=== PATIENT | female | born 2000 | race Caucasian/White ===

== ENCOUNTER 2020-03-15 13:15 | Emergency (ER) | payer MEDICAID, SELFPAY ==
[2020-03-15 13:38] VITALS: BP 115/60; PULSE 77; RESP 18; TEMP 36.7; O2SAT 99; BMI 25.0
--- NOTE | 2020-03-15 15:00 | ED_ITS ---
HPI - Abdominal Pain General: Chief Complaint: Abdominal Pain Stated Complaint: abd pain, n/v Time Seen by Provider: 03/15/20 14:49 Source: patient Mode of arrival: ambulatory Limitations: no limitations History of Present Illness: HPI narrative: Patient is a 19-year-old female who presents to ED today with complaints of intermittent upper abdominal pain, nausea, and diarrhea that has been present over the past few months. She does report one episode of non-bloody vomit recently. Patient states symptoms seem to be brought on by eating worse with greasy foods. She is tried OTC Tums and other heartburn relief medications without relief. Patient has not noticed any bloody or dark stools. She does report her mother had gallbladder disease. Patient denies heavy NSAID or alcohol use. She has not been running fevers. MD elicited complaint: abdominal pain and other (N/V/D) Onset (ago): month(s) Pain Consistency: intermittent Location: Epigastric and RUQ Severity: moderate Quality: burning Radiation: back Exacerbating factors: eating Relieving factors: nothing Associated Symptoms: Reports diarrhea, heartburn, nausea and vomiting; Denies chills, coffee ground emesis, dysuria, fever(s), hematochezia, hematemesis, melena and syncope Related Data: Date of Last Menstrual Period: 03/11/20 Review of Systems Const: Denies: fever(s) or chills ENMT: Denies: odynophagia Card: Denies: chest pain, palpitations, irregular heart rhythm, edema, lightheadedness, syncope, pre-syncope or orthopnea Resp: Denies: dyspnea GI: Reports: abdominal pain, nausea, vomiting, heartburn and diarrhea; Denies: hematemesis, coffee ground emesis, dysphagia, pain on defecation, hematochezia, melena or white/light colored stool : Denies: flank pain, difficulty voiding, dysuria, urinary frequency, urinary urgency or urinary hesitancy Musc: Denies: neck pain or back pain Neuro: Denies: headache(s) PFSH ED PFSH: Social History Smoking and tobacco status: current every day smoker Female Reproductive History: Date of last menstrual period: 03/11/20 Physical Exam 2 Const: COMMON NORMALS: no acute distress, average body habitus, patient oriented x3, no limitations, healthy appearing, alert and well nourished Chest: COMMONS NORMALS: normal inspection of the chest and normal palpation of entire chest wall Resp: COMMON NORMALS: normal respiratory effort and clear to auscultation bilaterally AUSCULTATION: clear to auscultation bilaterally Cardio: COMMON NORMALS: regular rate and regular rhythm RATE: regular rate RHYTHM: regular rhythm GI: COMMON NORMALS: Normal to inspection, nondistended, normoactive bowel sounds present, Soft to palpation and No hepatosplenomegaly present PALPATION: Yes Soft to palpation, Yes Tenderness to palpation present (GI) (mild to epigastric, RUQ) and Yes No hepatosplenomegaly present : COMMON NORMALS: Yes no CVA tenderness BLADDER/KIDNEY EXAM: Yes no CVA tenderness Back/Pelvis: COMMON NORMALS: no CVA tenderness Extremity: COMMON NORMALS: no clubbing, cyanosis or edema and no pedal edema Neuro: COMMON NORMALS: patient oriented x3 SENSORIUM/ORIENTATION: Yes alert Skin: COMMON NORMALS: no rashes or lesions noted GENERAL SKIN EXAM: no rashes or lesions noted Course Vital Signs: Vital signs: Vital Signs Temperature 98.0 F 03/15/20 13:38 Pulse Rate 72 03/15/20 16:26 Respiratory Rate 18 03/15/20 16:26 Blood Pressure 112/59 03/15/20 16:26 Pulse Oximetry 99 03/15/20 16:26 MDM - Abdominal Pain Lab Data: Labs: Lab Results 03/15/20 03/15/20 03/15/20 Range/Units 15:04 15:04 15:04 WBC 9.9 (4.0-10.0) 10^3/ uL RBC 4.46 (4.1-5.3) 10^6/u L Hgb 14.1 (11.5-15.3) g/dL Hct 43.4 (37.0-47.0) % MCV 97.3 (81-99) fL MCH 31.6 (28.0-34.0) pg MCHC 32.5 (30.0-36.0) g/dL RDW 11.7 L (12.1-15.1) % Plt Count 260 (130-400) 10^3/c mm MPV 11.8 H (7.4-10.4) fL Neut % (Auto) 65.7 % Lymph % (Auto) 25.6 % Greer % (Auto) 6.8 % Eos % (Auto) 1.2 % Baso % (Auto) 0.5 % Neut # (Auto) 6.5 (1.8-7.7) 10^3/u L Lymph # (Auto) 2.5 (0.8-4.8) 10^3/u L Greer # (Auto) 0.7 (0.2-0.9) 10^3/u L Eos # (Auto) 0.1 (0.0-0.8) 10^3/u L Baso # (Auto) 0.1 (0.0-0.1) 10^3/u L Nucleated RBC % (a uto) 0 % Nucleated RBCs # 0.0 /100WBC Sodium 140 (136-145) mmol/L Potassium 3.9 (3.5-5.1) mmol/L Chloride 104 (98-107) mmol/L Carbon Dioxide 24 (22-29) mmol/L Anion Gap 15.9 (5-19) BUN 9 (6-20) mg/dL Creatinine 0.5 (0.5-0.9) mg/dL GFR Calculation 155.7 H (90-130) mL/min Glucose 80 (65-115) mg/dL Calculated Osmolal ity 285 (285-295) mOsm/k g Calcium 9.9 (8.5-10.5) mg/dL Total Bilirubin 0.9 (0.15-1.2) mg/dL AST 13 (0-32) U/L ALT 10 (0-33) U/L Alkaline Phosphata se 83 (35-105) IU/L Total Protein 7.3 (6.6-8.7) g/dL Albumin 5.1 (3.5-5.2) g/dL Globulin 2.2 (1.3-4.6) g/dL Lipase 16 (13-60) U/L HCG, Qual Negative (Negative) Imaging Data ^: US gallbladder: Radiologist's impression: [address] [place] [address] Ultrasound Report Signed Patient: Marco Antonio Fuentes Unit #: [id number] : 2000 Age/Sex: 19 / F ADM Date: 03/15/20 Loc: ER Room/Bed: Attending Dr: Ordering Provider/Ordering MD: Dana Cabrera Date of Service: 03/15/20 Procedure(s): US gall bladder 48391 Accession Number(s): [id number] Report Number: [id number] PROCEDURE INFORMATION: Exam: US Abdomen Limited, Right Upper Quadrant Exam date and time: 03/15/2020 3:46 PM Age: 19 years old Clinical indication: Abdominal pain; Additional info: Ruq pain TECHNIQUE: Imaging protocol: Real-time ultrasound of the abdomen with image documentation. Examination was focused on the right upper quadrant. COMPARISON: No relevant prior studies available. FINDINGS: Liver: The liver is homogeneous in echogenicity. The liver measures 12.4 cm in length. Gallbladder: There is cholelithiasis with multiple small mobile gallstones. The gallbladder wall is normal in thickness at 1.9 mm. There is a negative sonographic Ulloa's sign. Common bile duct: The common bile duct is within normal limits at 2.1 mm. No duct dilatation. Pancreas: Visualized pancreas is unremarkable. Right kidney: Normal. No mass. No hydronephrosis. Aorta: The aorta is visualized and is unremarkable. US/US gall bladder [id number] IMPRESSION: Cholelithiasis without cholecystitis. No acute abnormality. Dictated By: Taya Esparza Signed By: Taya Esparza Signed Date/Time: 03/15/20 1601 DD/ 1600 Discharge Plan Discharge Patient Disposition: Home, Self-Care Clinical Impression: Cholelithiasis Qualifiers: Cholelithiasis location: gallbladder Cholecystitis presence: without cholecystitis Biliary obstruction: without biliary obstruction Qualified Code(s): K80.20 - Calculus of gallbladder without cholecystitis without obstruction Condition: Stable Prescriptions: New Zofran 4 mg tablet 4 mg PO Q6H PRN (Reason: nausea and vomiting) Qty: 14 RF: 0 No Action ibuprofen 200 mg Tablet 200 mg PO Q6H PRN (Reason: pain/headache) RF: 0 norethindrone (contraceptive) 0.35 mg Tablet 0.35 mg PO DAILY RF: 0 Discharge Orders: Discharge Order (Routine); Ordered 03/15/20 Ordered By: Dana Cabrera Referrals: Hernán Da Sliva MD [Primary Care Provider] - Patient Instructions: Cholelithiasis, Biliary Colic (ED) Activity Restrictions/Additional Instructions: As discussed to stay away from greasy, spicy, fatty foods. You may use the Zofran as needed for nausea. Case management should contact you to set you up with general surgery for further evaluation. Coding Level of Care Code ED Substation Supervisor for Chg Fwd Exam Comprehensive
--- NOTE | 2020-03-15 15:08 | USR_ITS ---
PROCEDURE INFORMATION: Exam: US Abdomen Limited, Right Upper Quadrant Exam date and time: 03/15/2020 3:46 PM Age: 19 years old Clinical indication: Abdominal pain; Additional info: Ruq pain TECHNIQUE: Imaging protocol: Real-time ultrasound of the abdomen with image documentation. Examination was focused on the right upper quadrant. COMPARISON: No relevant prior studies available. FINDINGS: Liver: The liver is homogeneous in echogenicity. The liver measures 12.4 cm in length. Gallbladder: There is cholelithiasis with multiple small mobile gallstones. The gallbladder wall is normal in thickness at 1.9 mm. There is a negative sonographic Ulloa's sign. Common bile duct: The common bile duct is within normal limits at 2.1 mm. No duct dilatation. Pancreas: Visualized pancreas is unremarkable. Right kidney: Normal. No mass. No hydronephrosis. Aorta: The aorta is visualized and is unremarkable. US/US gall bladder [id number] IMPRESSION: Cholelithiasis without cholecystitis. No acute abnormality.
[2020-03-15 15:10] LABS: Basophils # 0.1 10^3/uL (0.0-0.1); Basophils % 0.5 %; Eosinophils # 0.1 10^3/uL (0.0-0.8); Eosinophils % 1.2 %; Hematocrit 43.4 % (37.0-47.0); Hemoglobin 14.1 g/dL (11.5-15.3); Lymphocytes # 2.5 10^3/uL (0.8-4.8); Lymphocytes % 25.6 %; Mean Corpuscular HGB Conc 32.5 g/dL (30.0-36.0); Mean Corpuscular Hemoglobin 31.6 pg (28.0-34.0); Mean Corpuscular Volume 97.3 fL (81-99); Mean Platelet Volume 11.8 fL (7.4-10.4); Monocytes # 0.7 10^3/uL (0.2-0.9); Monocytes % 6.8 %; Neutrophils # 6.5 10^3/uL (1.8-7.7); Neutrophils % 65.7 %; Nucleated Red Blood Cells % 0 %; Platelet Count 260 10^3/cmm (130-400); Red Blood Count 4.46 10^6/uL (4.1-5.3); Red Cell Distribution Width 11.7 % (12.1-15.1); White Blood Count 9.9 10^3/uL (4.0-10.0)
[2020-03-15 15:23] LABS: HCG, Serum Qual Negative (Negative)
[2020-03-15 15:31] LABS: Alanine Aminotransferase 10 U/L (0-33); Albumin Level 5.1 g/dL (3.5-5.2); Alkaline Phosphatase 83 IU/L (35-105); Anion Gap 15.9 (5-19); Aspartate Amino Transferase 13 U/L (0-32); Blood Urea Nitrogen 9 mg/dL (6-20); Calcium 9.9 mg/dL (8.5-10.5); Carbon Dioxide 24 mmol/L (22-29); Chloride 104 mmol/L (98-107); Globulin 2.2 g/dL (1.3-4.6); Glomerular Filtration Rate 155.7 mL/min (90-130); Glucose 80 mg/dL (65-115); Lipase 16 U/L (13-60); Osmolality Calculated 285 mOsm/kg (285-295); Potassium 3.9 mmol/L (3.5-5.1); Sodium 140 mmol/L (136-145); Total Bilirubin 0.9 mg/dL (0.15-1.2); Total Protein 7.3 g/dL (6.6-8.7)
[2020-03-15] MEDS: lidocaine 2% viscous 15 ML, aluminum-mag hydrox-simethicon 30 ML, sucralfate oral liq 1 GM PO (16:00)
[2020-03-15] MEDS: ondansetron 4 MG Tablet PO (16:13)
[2020-03-15 16:26] VITALS: BP 112/59; PULSE 72; RESP 18; O2SAT 99
--- NOTE | 2020-03-17 11:48 | DCPLANNER ---
visual display manager had message to schedule a follow up appointment for patient with general surgery. visual display manager called [facility], spoke with Manuela, gave clinic patients information. visual display manager was told that patients information would be printed and reviewed. Clinic will call patient with appointment information.
--- NOTE | 2020-03-20 13:36 | DCPLANNER ---
Patient has a follow up appointment scheduled for , March 27, [address] at 9:[address] Jean. Clinic will call patient with appointment information.
--- NOTE | 2020-03-27 11:25 | DCPLANNER ---
Patient did attend appointment scheduled for 03.27.20 with [facility].
== END 2020-03-15 16:36 | disposition home or self-care (01) ==
PROVIDERS: Emergency Provider Physician Assistant; PCP Family Medicine
DX: K80.20 Calculus of gallbladder without cholecystitis without obstruction (principal); F17.210 Nicotine dependence, cigarettes, uncomplicated
CPT/HCPCS: 12345; 36415; 76705; 80053; 83690; 84703; 85025; 99281; 99283; Q0162

== ENCOUNTER 2020-04-07 06:28 | Day surgery (SDC) | payer MEDICAID, SELFPAY ==
[2020-04-04 09:04] VITALS: BMI 25.0
[2020-04-07] VITALS (8 sets, daily range): BP systolic 112–124; BP diastolic 56–68; PULSE 66–88; RESP 16–27; TEMP 36.1–36.8; O2SAT 97–100
[2020-04-07 06:52] LABS: OR HCG Qualitative Urine Negative (Negative)
--- NOTE | 2020-04-07 07:16 | W.PM.OPSUD ---
Surgery/Procedure H&P Update DATE OF PROCEDURE: April 07, 2020 DATE H&P PERFORMED: 03/27/20 H&P UPDATE INFORMATION: I have reviewed H&P completed within last 30 days, I have examined patient prior to procedure and No changes to prior documentation PREOP DIAGNOSIS: Symptomatic cholelithiasis PRIMARY INDICATION FOR PROCEDURE: The same PLANNED PROCEDURE: Operation Date: 04/07/20 08:10 Proposed Procedures p Laparoscopic Cholecystectomy 48051 K80.20(Not Applicable) - Ye Jean MD
--- NOTE | 2020-04-07 07:16 | ANES.PREANE2 ---
Pre-Anesthetic Assessment Pre-Anesthetic Assessment: Height/Weight: Height 1.7 m Weight 72.575 kg Temp Pulse Resp BP Pulse Ox 98.2 F 66 18 116/58 99 04/07/20 06:50 04/07/20 06:50 04/07/20 06:50 04/07/20 06:50 04/07/20 06:50 Preop Diagnosis: Symptomatic cholelithiasis Proposed Procedure: Operation Date: 04/07/20 08:10 Proposed Procedures p Laparoscopic Cholecystectomy 00012 K80.20(Not Applicable) - Ye Jean MD Familial anesthetic complications: denies Was Beta Madan taken within 24 hours: N/A Last intake: Intake Last Liquid Date 04/07/20 Last Liquid Time 22:00 Last Solid Date 04/07/20 Last Solid Time 21:00 Last Intake: 00:00 Social: Social History: Alcohol (socially) and Tobacco Packs per day: 5 cigs Pack years: 12 History/ROS: No significant history except as noted Pulmonary: Pulmonary: None reported CV/HEM: CV/HEM: Murmur : : None reported Hepatic: Hepatic: None reported GI: GI: GERD (sleeps propped up ) Metabolic: Metabolic: None reported Musc/skel: Musc/skel: None reported Neuropsych: Neuropsych: None reported Anesthetic Plan: ASA status: 2 Anesthesia: Anesthesia Evaluation and General PFSH Anesthesia PFSH: Medical History H/O cardiac murmur Surgical History History of appendectomy History of tonsillectomy Family History Other CAD (coronary artery disease) Diabetes Denies family history of Anesthesia complication Bleeding disorder Cancer Social History Smoking and tobacco status: current every day smoker Alcohol intake: current Alcohol intake frequency: holidays/special occasions only Household members: spouse Marital status: Current occupational status: employed History of recent travel: No Female Reproductive History: Date of last menstrual period: 03/11/20 Data Anesthesia Other Labs: Laboratory Results - last 48 hr 04/07/20 06:51 Urine HCG, Qual Negative Cardiac Studies: No Data to Display
[2020-04-07] MEDS: sodium chloride 0.9% 1,000 ML 100 ML IV (07:26)
[2020-04-07] MEDS: lidocaine 2% INJ 20 mL INJECTION (08:50)
--- NOTE | 2020-04-07 08:59 | PM.OP ---
Operative Report Date of procedure: April 07, 2020 Pre-op Diagnosis: Symptomatic cholelithiasis Post-op diagnosis: same Post-op Findings: Chronic cholecystitis Procedure Done: Laparoscopic cholecystectomy Specimens removed/disposition: Gallbladder and contents Surgeon: Ye Jean Hot Stamp Operator: Surgical juan Slater Circulating nurse Mary Anesthesia: General (rural service engineer Radha) Estimated blood loss (mL): 5 Condition: stable Disposition: same day Brief History: This is a pleasant 19 years old female patient referred to my office with symptomatic gallbladder disease , after thorough history physical exam patient was counseled for laparoscopic . Plan of care; After thorough history physical examination and reviewing the chart ,I counseled the patient for laparoscopic cholecystectomy possible open, indications risks including but not limited injury to the common bile duct and other viscera.benefits and alternatives all discussed with the patient, and she did agree to proceed. All questions have been answered and all concerns have been addressed to patient's satisfaction. Rationale was carefully and clearly discussed with the patient.Appropriate informed consent have been reviewed and signed. Procedure: Patient was identified in the holding area and taken back to the operative suite, placed in supine position intubated by anesthesia . Time-out was done verifying the patient's name/date of /planned procedure and destination after the procedure, all were in agreement. SCDs confirmed to be functioning, preoperative antibiotics administered per protocol, and beta asim protocol was confirmed. Patient was appropriately secured to the table, footboard was applied to the OR table, before prep and drape anesthesia was asked to tilt the table back and forth to make sure that the patient is appropriately secured and she was. Prep and drape of the abdomen was done under the usual sterile technique, followed by that infraumbilical skin incision,skin incision was done by a 11 blade knife, and stay sutures were applied to the fascia and Hoskins trocar technique was used to enter the abdominal without injuring any abdominal viscera, started by low flow gas insufflation followed by a high flow, started with a 10 mm laparoscope and under direct vision there was no evidence of any injuries, the scope then switched to a 30? ,10 millimeter scope and under direct visualization 5 millimeter trocar was inserted in the epigastric region followed by two 5 mm trocars were inserted in the right upper quadrant that was done after injection of local lidocaine 2% at all incision sites. Gallbladder showed chronic cholecystitis &with adhesions Patient was then positioned in the head up and tilted to the left Ratcheted forceps were introduced into the lateral most 5mm port and was applied unto the fundus of the gallbladder cephalad and using Bullet forceps the infundibulum of the gallbladder was retracted laterally. Using [place] forceps then L-hook cautery to dissect the peritoneum overlying the Calot's triangle whihc was then opened medially and laterally until the cystic duct and the cystic artery were skeletonized. Dissection was carried along the body of the gallbladder and after ensuring critical view of safety was identfied. Cystic duct and cystic artery where seen connected to the gallbladder. Clips were applied on the cystic duct towards the common bile duct 1 towards the gallbladder then divided is in sharp scissors, 2 clips were then applied onto the cystic artery and 1 towards the gallbladder and divided by sharp scissors, there was an additional traversing vessel that a 5 mm clip was applied onto. Dissection was then carried along of the gallbladder from the gallbladder fossa using cautery as well as sharp dissection with heat energy. The gallbladder then was dissected out from the gallbladder fossa totally , cholecystectomy was then achieved and was placed in an Endo Catch bag and then retrieved from the Hoskins trocar site under direct visualization using a 5 mm 30? scope through the epigastric trocar, specimen was then passed to the circulating nurse to go for permanent pathology,irrigation and hemostasis was done to the gallbladder fossa after hemostasis was secured, final survey laparoscopy was done that showed no injuries. Suction irrigation was obtained The Infraumbilical fascial defect was then closed using interrupted Vicryl sutures using a fascial closure device ;Toby Daniel under direct visualization Gas was allowed to deflate,Trocars were then taken out under direct vision there was no evidence of bleeding Specimen was passed to the circulating nurse for permanent pathology. No drains were placed and the Infraumbilical incision as well as all trocar sites were closed by by 4-0 Monocryl to approximate the skin edges of the Infraumbilical incision, dressing was applied in the form of Dermabond and the patient patient got extubated and was taken to recovery area in a stable condition. Count of sponges, needles and instruments were completed at the end of the procedure I was present for the whole entire procedure. Associated Problem List Diagnoses (1) Cholelithiasis: Qualifiers: Biliary obstruction: without biliary obstruction Cholecystitis presence: without cholecystitis Cholelithiasis location: gallbladder Qualified Code(s): K80.20 - Calculus of gallbladder without cholecystitis without obstruction
--- NOTE | 2020-04-07 09:16 | SUR.PHASEI ---
0910 PATIENT TO PACU FROM OR. NO DISTRESS. 4 INCISIONS TO ABDOMEN, CDI. 100% ON SIMPLE MASK AT 8L.
[2020-04-07] MEDS: ondansetron 2 mg/ML SDV 2 mL 4 MG IVP ×2 (09:19→09:25)
--- NOTE | 2020-04-07 09:33 | SUR.PHASEI ---
0930 PATIENT TO OPS AT THIS TIME. NAUSEA IMPROVED, TOLERATING ICE CHIPS. 4 INCISIONS TO ABDOMEN,CDI.
[2020-04-07] MEDS: HYDROcodone-acetaminophen 5-325 mg Tablet 1 TAB PO (09:48)
== END 2020-04-07 10:20 | disposition home or self-care (01) ==
PROVIDERS: PCP Family Medicine; Visit Provider Surgery
PROC: 0FT44ZZ Resection of Gallbladder, Percutaneous Endoscopic Approach (ICD-10-PCS; CPT 47562; principal; 2020-04-07 08:10)
DX: K80.10 Calculus of gallbladder with chronic cholecystitis without obstruction (principal); K21.9 Gastro-esophageal reflux disease without esophagitis; F17.210 Nicotine dependence, cigarettes, uncomplicated; Z82.49 Family history of ischemic heart disease and other diseases of the circulatory system; Z83.3 Family history of diabetes mellitus
CPT/HCPCS: 12345; 81025; 84703; 88304; J0131; J0330; J0690; J1100; J2405; J2704; J2710; J3010; J3490; J7030

== ENCOUNTER 2021-03-02 01:26 | Emergency (ER) | payer BC, MEDICAID, SELFPAY ==
[2021-03-02] VITALS (8 sets, daily range): BP systolic 94–116; BP diastolic 56–72; PULSE 80–111; RESP 15–22; TEMP 37.6; O2SAT 96–100; BMI 23.9
--- NOTE | 2021-03-02 03:33 | XRR_ITS ---
PROCEDURE INFORMATION: Exam: XR Chest Exam date and time: 03/02/2021 3:52 AM Age: 20 years old Clinical indication: Pain; On breathing; Additional info: Cp TECHNIQUE: Imaging protocol: XR of the chest. Views: 1 view. COMPARISON: CR Chest 1 [place] [id number] 05/06/2018 9:00 PM FINDINGS: Lungs: Left infrahilar opacity consistent pneumonia. Pleural spaces: Unremarkable. No pleural effusion. No pneumothorax. Heart/Mediastinum: Unremarkable. No cardiomegaly. Bones/joints: Unremarkable. XR/XR chest 1V portable [id number] IMPRESSION: Left infrahilar opacity consistent pneumonia.
--- NOTE | 2021-03-02 03:34 | ECG_ITS ---
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 Measurements Intervals [place] Rate: 88 P: 45 RI: 183 QRS: 65 QRSD: 94 T: 11 QT: 341 QTc: 413 Interpretive Statements SINUS RHYTHM POSSIBLE LEFT ATRIAL ENLARGEMENT [-0.1mV P WAVE IN V1/V2] POSSIBLE RIGHT VENTRICULAR CONDUCTION DELAY [RSR (QR) IN V1/V2] NONSPECIFIC ST & T-WAVE ABNORMALITY No previous ECG available for comparison Electronically Signed On 03-02-2021 12:32:18 CDT by Ezequiel Dong M.D. [email or web address]
[2021-03-02 04:13] LABS: Basophils % 0.5 %; Eosinophils % 0.2 %; Hematocrit 34.2 % (37.0-47.0); Hemoglobin 12.3 g/dL (11.5-15.3); Lymphocytes # 1.2 10^3/uL (0.8-4.8); Lymphocytes % 17.4 %; Mean Corpuscular Hemoglobin 32.3 pg (28.0-34.0); Mean Corpuscular Volume 89.8 fL (81-99); Mean Platelet Volume 11.8 fL (7.4-10.4); Monocytes # 0.8 10^3/uL (0.2-0.9); Monocytes % 12.6 %; Neutrophils # 4.59 10^3/uL (1.8-7.7); Nucleated Red Blood Cells % 0 %; Platelet Count 189 10^3/cmm (130-400); Red Blood Count 3.81 10^6/uL (4.1-5.3); Red Cell Distribution Width 11.3 % (12.1-15.1); White Blood Count 6.7 10^3/uL (4.0-10.0)
--- NOTE | 2021-03-02 04:15 | ED_ITS ---
HPI - Extremity Problem General: Chief complaint: Extremity Injury, Upper Stated complaint: shoulder pain Time Seen by Provider: 03/02/21 03:13 History of Present Illness: HPI Narrative: 20-year-old female who is 6 weeks 5 days by dates. She presents with left-sided upper chest and shoulder pain. Pain is sharp, and worse with movement of the shoulder or taking a deep breath. She denies any cough, fever, significant shortness of breath. She has noticed her heart rate has been higher. No sick contacts. MD Complaint: extremity pain Onset (ago): day(s) (4) Location: left and upper extremity Quality: sharp Radiation: proximal and other (chest) Relieving factors: nothing Exacerbating factors: nothing Associated symptoms: Reports chest pain; Deny arthralgias, fever(s), rash or short of breath Review of Systems Const: Denies: fever(s) ENMT: Denies: odynophagia or sinus pain Card: Reports: chest pain Resp: Denies: dyspnea, productive cough, non-productive cough or wheezing GI: Denies: abdominal pain, nausea or vomiting : Denies: dysuria Musc: Reports: back pain; Denies: neck pain Skin/Breast: Denies: rash Neuro: Denies: headache(s), dizziness or vertigo Psych: Denies: anxiety PFSH ED PFSH: Medical History (Updated 03/02/21 @ 06:54 by John iMles DO) H/O cardiac murmur Surgical History History of appendectomy History of tonsillectomy Family History Other CAD (coronary artery disease) Diabetes Denies family history of Anesthesia complication Bleeding disorder Cancer Social History Smoking and tobacco status: current every day smoker Alcohol intake: current Alcohol intake frequency: holidays/special occasions only Household members: spouse Marital status: Current occupational status: employed History of recent travel: No Female Reproductive History: Date of last menstrual period: 03/11/20 Physical Exam Const: GENERAL APPEARANCE: well developed ORIENTATION/CONSCIOUSNESS: Yes oriented to person, Yes oriented to place and Yes oriented to time HENMT: COMMON NORMALS: normocephalic, external ears normal and Normal external nose present HEAD & SCALP: normocephalic FACE & SINUS: normal facial exam NOSE: Normal external nose present and No nasal discharge present EXTERNAL EAR: Yes external ears normal Eye: COMMON NORMALS: Equal, round and reactive pupils present, EOMs intact bilaterally and conjunctivae normal EYELID: eyelids normal CONJUNCTIVA: Yes conjunctivae normal PUPIL: Yes Equal, round and reactive pupils present Neck/C-Spine: GENERAL: No tracheal deviation Chest: COMMONS NORMALS: normal inspection of the chest CHEST: Yes tenderness Resp: COMMON NORMALS: clear to auscultation bilaterally EFFORT & INSPECTION: No tachypneic, No respiratory distress, No retractions, No uses accessory muscles and No tracheal deviation AUSCULTATION: clear to auscultation bilaterally, no rhonchi, no wheezes and lung sounds not diminished Cardio: COMMON NORMALS: regular rhythm RATE: tachycardic RHYTHM: regular rhythm HEART SOUNDS: no murmurs PERIPHERAL PULSES: radial pulses present GI: INSPECTION: No abdominal distension AUSCULTATION: No Hyperactive bowel sounds present and No Hypoactive bowel sounds present PALPATION: No Guarding due to palpation present (GI) and No Rigid due to palpation PERCUSSION: no dullness to percussion and no tympanic to percussion Neuro: SENSORIUM/ORIENTATION: Yes oriented to person, Yes oriented to place and Yes oriented to time Psych: COMMON NORMALS: mental status grossly normal Skin: COMMON NORMALS: no rashes or lesions noted GENERAL SKIN EXAM: no rashes or lesions noted Course Vital Signs: Vital signs: Vital Signs Temperature 99.7 F H 03/02/21 01:47 Pulse Rate 86 03/02/21 06:56 Respiratory Rate 21 H 03/02/21 06:56 Blood Pressure 116/63 03/02/21 06:56 Pulse Oximetry 99 03/02/21 06:56 MDM - Extremity (Nontraumatic) MDM Narrative: Medical decision making narrative: White blood cell count 6.7. Hemoglobin is 12. Her D-dimer is greater than 1000. Chest x-ray is not remarkable. She is tachycardic. She has a temperature. CTA of the chest shows no pulmonary embolus, but there are patchy areas of consolidation in the lingula and left lower lobe consistent with pneumonia. She will be treated with antibiotics. We will do a PCR COVID-19 swab on her as well. Lab Data: Labs: Lab Results 03/02/21 03/02/21 03/02/21 Range/Units 04:08 04:08 04:08 WBC 6.7 (4.0-10.0) 10^3/ uL RBC 3.81 L (4.1-5.3) 10^6/u L Hgb 12.3 (11.5-15.3) g/dL Hct 34.2 L (37.0-47.0) % MCV 89.8 (81-99) fL MCH 32.3 (28.0-34.0) pg MCHC 36.0 (30.0-36.0) g/dL RDW 11.3 L (12.1-15.1) % Plt Count 189 (130-400) 10^3/c mm MPV 11.8 H (7.4-10.4) fL Neut % (Auto) 69.0 % Lymph % (Auto) 17.4 % [place] % (Auto) 12.6 % Eos % (Auto) 0.2 % Baso % (Auto) 0.5 % Neut # (Auto) 4.59 (1.8-7.7) 10^3/u L Lymph # (Auto) 1.2 (0.8-4.8) 10^3/u L [place] # (Auto) 0.8 (0.2-0.9) 10^3/u L Eos # (Auto) 0.0 (0.0-0.8) 10^3/u L Baso # (Auto) 0.0 (0.0-0.1) 10^3/u L Nucleated RBC % (a uto) 0 % Nucleated RBCs # 0.0 /100WBC D-Dimer 1.02 H (0-0.59) ug/mIFE U Sodium 132 L (136-145) mmol/L Potassium 4.1 (3.5-5.1) mmol/L Chloride 100 (98-107) mmol/L Carbon Dioxide 20 L (22-29) mmol/L Anion Gap 16.1 (5-19) BUN 5 L (6-20) mg/dL Creatinine 0.4 L (0.5-0.9) mg/dL GFR Calculation 199.6 H (90-130) mL/min Glucose 90 (65-115) mg/dL Calculated Osmolal ity 271 L (285-295) mOsm/k g Calcium 8.1 L (8.5-10.5) mg/dL Total Bilirubin 0.4 (0.15-1.2) mg/dL AST 15 (0-32) U/L ALT 8 (0-33) U/L Alkaline Phosphata se 46 (35-105) IU/L Creatine Kinase 38 (26-192) U/L Troponin T Gen 5 n g/L (0-10) ng/L NT-Pro-B Natriuret Pep 85 (0-125) pg/mL Total Protein 6.4 L (6.6-8.7) g/dL Albumin 3.6 (3.5-5.2) g/dL Globulin 2.8 (1.3-4.6) g/dL 03/02/21 Range/Units 04:08 WBC (4.0-10.0) 10^3/ uL RBC (4.1-5.3) 10^6/u L Hgb (11.5-15.3) g/dL Hct (37.0-47.0) % MCV (81-99) fL MCH (28.0-34.0) pg MCHC (30.0-36.0) g/dL RDW (12.1-15.1) % Plt Count (130-400) 10^3/c mm MPV (7.4-10.4) fL Neut % (Auto) % Lymph % (Auto) % [place] % (Auto) % Eos % (Auto) % Baso % (Auto) % Neut # (Auto) (1.8-7.7) 10^3/u L Lymph # (Auto) (0.8-4.8) 10^3/u L [place] # (Auto) (0.2-0.9) 10^3/u L Eos # (Auto) (0.0-0.8) 10^3/u L Baso # (Auto) (0.0-0.1) 10^3/u L Nucleated RBC % (a uto) % Nucleated RBCs # /100WBC D-Dimer (0-0.59) ug/mIFE U Sodium (136-145) mmol/L Potassium (3.5-5.1) mmol/L Chloride (98-107) mmol/L Carbon Dioxide (22-29) mmol/L Anion Gap (5-19) BUN (6-20) mg/dL Creatinine (0.5-0.9) mg/dL GFR Calculation (90-130) mL/min Glucose (65-115) mg/dL Calculated Osmolal ity (285-295) mOsm/k g Calcium (8.5-10.5) mg/dL Total Bilirubin (0.15-1.2) mg/dL AST (0-32) U/L ALT (0-33) U/L Alkaline Phosphata se (35-105) IU/L Creatine Kinase (26-192) U/L Troponin T Gen 5 n g/L 6 (0-10) ng/L NT-Pro-B Natriuret Pep (0-125) pg/mL Total Protein (6.6-8.7) g/dL Albumin (3.5-5.2) g/dL Globulin (1.3-4.6) g/dL Discharge Plan Discharge Patient Disposition: Home Clinical Impression: Pneumonia complicating Qualifiers: Trimester: first trimester Qualified Code(s): O99.511 - Diseases of the respiratory system complicating , first trimester Condition: Stable Prescriptions: New Zithromax 250 mg tablet See Rx Instructions .ROUTE .COMPLEX Qty: 6 RF: 0 cefdinir 300 mg capsule 300 mg PO BID 7 Days Qty: 14 RF: 0 dexamethasone 6 mg tablet 6 mg PO DAILY Qty: 5 RF: 0 No Action norethindrone (contraceptive) 0.35 mg Tablet 0.35 mg PO DAILY RF: 0 [place] 5-325 mg tablet 1 tab PO Q6H PRN (Reason: pain) Qty: 28 RF: 0 Discharge Orders: Discharge ED (Routine); Ordered 03/02/21 Ordered By: John Miles Referrals: Hernán Da Silva MD [Primary Care Provider] - 4-7 days Patient Instructions: Pneumonia (ED) Activity Restrictions/Additional Instructions: Stay at home, and quarantine until your COVID-19 test comes back negative. Antibiotics as directed. Return for worsening shortness of breath, fever greater than 100 despite 2-3 doses of antibiotics, worsening chest discomfort despite treatment, any other concerning symptoms. Coding Level of Care Code ED Printer Maintainer for Chg Fwd Exam Comprehensive
[2021-03-02 04:28] LABS: D Dimer 1.02 ug/mIFEU (0-0.59)
[2021-03-02 04:34] LABS: Troponin T (5th) Once 6 ng/L (0-10)
[2021-03-02 04:41] LABS: Albumin Level 3.6 g/dL (3.5-5.2); Alkaline Phosphatase 46 IU/L (35-105); Blood Urea Nitrogen 5 mg/dL (6-20); Calcium 8.1 mg/dL (8.5-10.5); Carbon Dioxide 20 mmol/L (22-29); Chloride 100 mmol/L (98-107); Creatine Phosphokinase 38 U/L (26-192); Globulin 2.8 g/dL (1.3-4.6); Glomerular Filtration Rate 199.6 mL/min (90-130); Glucose 90 mg/dL (65-115); NT Pro B Type Natriuretic Pept 85 pg/mL (0-125); Osmolality Calculated 271 mOsm/kg (285-295); Sodium 132 mmol/L (136-145); Total Bilirubin 0.4 mg/dL (0.15-1.2); Total Protein 6.4 g/dL (6.6-8.7)
--- NOTE | 2021-03-02 04:41 | CTR_ITS ---
PROCEDURE INFORMATION: Exam: CTA Chest With Contrast Exam date and time: 03/02/2021 4:56 AM Age: 20 years old Clinical indication: Pain; Left-sided; Additional info: Chest pain TECHNIQUE: Imaging protocol: Computed tomographic angiography of the chest with contrast. 3D rendering (Not supervised by radiologist): MIP and/or 3D reconstructed images were created by the technologist. Radiation optimization: All CT scans at this facility use at least one of these dose optimization techniques: automated exposure control; mA and/or kV adjustment per patient size (includes targeted exams where dose is matched to clinical indication); or iterative reconstruction. Contrast material: OMNI 350; Contrast volume: 95 ml; Contrast route: INTRAVENOUS (IV); COMPARISON: CR (CHEST, ) 03/02/2021 4:02 AM RADIATION DOSE METRICS: Total DLP (mGy-cm): 435.42 FINDINGS: Pulmonary arteries: No pulmonary embolism. Aorta: No aortic dissection. Lungs: There are patchy areas of consolidation in the lingula and left lower lobe consistent with pneumonia. Pleural spaces: Unremarkable. No pneumothorax. No pleural effusion. Heart: Unremarkable. No cardiomegaly. No pericardial effusion. Lymph nodes: 1 x 1.8 cm prevascular mediastinal lymph node. 9 mm left hilar lymph node. Bones/joints: Unremarkable. No acute fracture. Soft tissues: Unremarkable. CT/CT angio chest PE protcl [id number] IMPRESSION: 1. No pulmonary embolism. 2. There are patchy areas of consolidation in the lingula and left lower lobe consistent with pneumonia. Radiation Dose CTDIVOL = (mGy): DLP = 435.42 (mGy-cm)
[2021-03-02 04:43] LABS: Alanine Aminotransferase 8 U/L (0-33); Anion Gap 16.1 (5-19); Aspartate Amino Transferase 15 U/L (0-32); Potassium 4.1 mmol/L (3.5-5.1)
[2021-03-02] MEDS: azithromycin 250 mg Tablet 500 MG PO (06:59)
[2021-03-02] MEDS: dexamethasone 4 mg/mL INJ 6 MG IVP (06:59)
[2021-03-02] MEDS: cefTRIAXone 1,000 MG in sodium chloride 0.9% (plus) 50 ML 100 MG IV (07:00)
[2021-03-03 16:43] LABS: Coronavirus Test Green County Not Detected
== END 2021-03-02 08:06 | disposition home or self-care (01) ==
PROVIDERS: Emergency Provider Emergency Medicine; PCP Family Medicine
DX: O99.511 Diseases of the respiratory system complicating pregnancy, first trimester (principal); O99.331 Smoking (tobacco) complicating pregnancy, first trimester; F17.210 Nicotine dependence, cigarettes, uncomplicated; Z3A.01 Less than 8 weeks gestation of pregnancy; Z20.822 Contact with and (suspected) exposure to COVID-19
CPT/HCPCS: 71045; 71275; 80053; 82550; 83880; 84484; 85025; 85378; 87635; 93005; 96365; 96375; 99284; J0696; J1100; Q0144; Q9967

== ENCOUNTER 2021-04-19 06:12 | Emergency (ER) | payer BC, MEDICAID, SELFPAY ==
[2021-04-19 06:13] VITALS: BP 122/67; PULSE 94; RESP 16; TEMP 36.8; O2SAT 98; BMI 24.3
--- NOTE | 2021-04-19 06:55 | PC.NURSE ---
Called [facility] for pickup of baby Alfredo. director of operations support said a benefits representative will come to [facility] for pickup and arrangements.
--- NOTE | 2021-04-19 07:46 | W.ED.PREGNAN ---
HPI - General: Chief complaint: OB/Uterine Contractions Stated complaint: MISCARRIAGE Time Seen by Provider: 04/19/21 06:14 Source: patient Mode of arrival: EMS Limitations: no limitations History of Present Illness: HPI Narrative: 20 yo f p/w spontaneous miscarriage at 13.5 weeks by LMP. She reports cramping over last few days. Patient is now. Her other child is 2 years old. Patient denies medical problems, drugs, alcohol, trauma. Unknown Rh type. Patient reports she can see fetus and cord hanging out of vagina. Date of Last Menstrual Period: 03/11/20 Associated symptoms: Reports abdominal pain (pelvic cramping); Deny nausea or vomiting Related Data: : 2 Review of Systems General: Reports: 10 or more systems reviewed and unremarkable except in HPI and below GI: Reports: abdominal pain (pelvic cramping); Denies: nausea or vomiting : Reports: vaginal bleeding and other (see hpi) Bennett/Lymph: Denies: easy bleeding or petechiae PFSH ED PFSH: Medical History (Updated 04/19/21 @ 07:55 by Deejay Adame MD) H/O cardiac murmur Surgical History History of appendectomy History of tonsillectomy Family History Other CAD (coronary artery disease) Diabetes Denies family history of Anesthesia complication Bleeding disorder Cancer Social History Smoking and tobacco status: current every day smoker Alcohol intake: current Alcohol intake frequency: holidays/special occasions only Household members: spouse Marital status: Current occupational status: employed History of recent travel: No Female Reproductive History: Date of last menstrual period: 03/11/20 : 2 Physical Exam Const: COMMON NORMALS: no acute distress, average body habitus, no limitations, alert and well nourished EXAM LIMITATIONS: no altered mental status GENERAL APPEARANCE: cooperative, well kempt, well developed and anxious ORIENTATION/CONSCIOUSNESS: Yes awake; not confused HENMT: COMMON NORMALS: normocephalic, atraumatic, external ears normal and Normal external nose present HEAD & SCALP: normal to inspection, normocephalic and atraumatic FACE & SINUS: face symmetric NOSE: Normal external nose present EXTERNAL EAR: Yes external ears normal MOUTH: lip normal; no muffled voice Eye: COMMON NORMALS: EOMs intact bilaterally and conjunctivae normal GENERAL EYE: appearance normal, both eyes and all related structures CONJUNCTIVA: Yes conjunctivae normal Neck/C-Spine: COMMON NORMALS: no JVD GENERAL: Yes normal visual inspection and Yes trachea midline Resp: COMMON NORMALS: normal respiratory effort, No use of accessory muscles and clear to auscultation bilaterally EFFORT & INSPECTION: Yes able to speak in complete sentences and Yes symmetric chest movement AUSCULTATION: clear to auscultation bilaterally Cardio: COMMON NORMALS: no JVD, regular rate and regular rhythm RATE: regular rate RHYTHM: regular rhythm PERIPHERAL PULSES: radial pulses present GI: COMMON NORMALS: Soft to palpation INSPECTION: Yes normal to inspection PALPATION: Yes Soft to palpation, No Tenderness to palpation present (GI) and No Guarding due to palpation present (GI) : EXTERNAL FEMALE EXAM: Yes normal appearance of the urethra and No external swelling OTHER: Between legs there is a premature fetus grossly consistent with 13-14 weeks as reported. Gentle traction applied to remove placenta but cord torn. Patient allowed to rest then manual removal of clot performed. Patient passed the placenta spontaneously about 15 minutes later. It appeared intact. Back/Pelvis: COMMON NORMALS: thoraco-lumbar ROM normal Extremity: COMMON NORMALS: normal to inspection GENERAL: Yes normal exam except as noted Neuro: COMMON NORMALS: moves all extremities, no focal motor deficits and no sensory deficits noted SENSORIUM/ORIENTATION: Yes alert Psych: COMMON NORMALS: mental status grossly normal, Normal thought process present, cooperative, normal affect and speech normal APPEARANCE: Yes well kempt ATTITUDE: Yes engaged SPEECH: Yes normal speech THOUGHT PROCESS: Normal thought process present Skin: COMMON NORMALS: no rashes or lesions noted, turgor normal and no jaundice GENERAL SKIN EXAM: no rashes or lesions noted and turgor normal Course Vital Signs: Vital signs: Vital Signs Temperature 98.3 F 04/19/21 06:13 Pulse Rate 94 04/19/21 06:13 Respiratory Rate 16 04/19/21 06:13 Blood Pressure 122/67 04/19/21 06:13 Pulse Oximetry 98 04/19/21 06:13 MDM - OB/Uterine Contractions MDM Narrative: Medical decision making narrative: Spontaneous miscarriage at 13.5 weeks. Blood ABO type found to be A+. Placenta delivered--sent to pathology. Patient stable and bleeding is tapered down. Patient has elected to have local home take baby and bury with a ceremony. Patient cleared for discharge. Lab Data: Labs: Lab Results 04/19/21 Range/Units 06:24 Blood Type A Positive Rho(D) Type Positive / 4+ Discharge Plan Discharge Patient Disposition: Home Clinical Impression: Complete miscarriage Condition: Stable Prescriptions: Discontinued azithromycin [Zithromax] 250 mg tablet See Rx Instructions .ROUTE .COMPLEX Qty: 6 RF: 0 dexamethasone 6 mg tablet 6 mg PO DAILY Qty: 5 RF: 0 norethindrone (contraceptive) 0.35 mg Tablet 0.35 mg PO DAILY RF: 0 hydrocodone-acetaminophen [[place]] 5-325 mg tablet 1 tab PO Q6H PRN (Reason: pain) Qty: 28 RF: 0 Discharge Orders: Discharge ED (Routine); Ordered 04/19/21 Ordered By: Deejay Adame Referrals: Hernán Da Silva MD [Primary Care Provider] - Discharge Diet: Advance as tolerated Discharge Activity: Increase activity as tolerated Patient Instructions: Spontaneous Miscarriage (ED) Activity Restrictions/Additional Instructions: Please monitor bleeding. If you have increased bleeding that is soaking more than one pad per hour, then return to ER. Please follow-up with your Family Doctor or your OB-SUPERVISOR [employer]INGS to discuss your miscarriage. You are A positive blood type. The placenta was sent to the hospital pathology lab. Coding Level of Care Code ED Machine Design Engineer for Chg Fwd Exam Comprehensive
[2021-04-19 08:00] VITALS: BP 100/57; PULSE 83; RESP 15; O2SAT 99
--- NOTE | 2021-04-19 08:16 | PC.NURSE ---
Obtained placenta for lab. Placed in lab bucket with labels and facesheet of pt and given to labor arbitrator hearing office. Cleaned blood off pt with warm wipes and changed bedding. Gave pt call light. SHADY Garrett
[2021-04-19 09:38] VITALS: BP 100/57; PULSE 89; RESP 16; O2SAT 99
== END 2021-04-19 09:39 | disposition home or self-care (01) ==
PROVIDERS: Emergency Provider Emergency Medicine; PCP Family Medicine
DX: O03.9 Complete or unspecified spontaneous abortion without complication (principal); F17.200 Nicotine dependence, unspecified, uncomplicated
CPT/HCPCS: 86900; 88305; 99283

== ENCOUNTER → 2025-03-12 13:13 | Outpatient (BNVA) | payer MEDICAID, SELFPAY | PROVIDERS: PCP Family Medicine; Visit Provider Emergency Medicine | DX: M79.671 Pain in right foot (principal); M25.571 Pain in right ankle and joints of right foot | CPT/HCPCS: 73610; 73630 ==

== ENCOUNTER → 2025-07-09 11:00 | Outpatient (BNVA) | payer MEDICAID, SELFPAY | PROVIDERS: PCP Nurse Practitioner Family; Visit Provider Nurse Practitioner Family | DX: N92.6 Irregular menstruation, unspecified (principal); N91.2 Amenorrhea, unspecified | CPT/HCPCS: 80053; 81025; 84443; 84702; 85025 ==

== ENCOUNTER 2025-07-20 14:08 | Emergency (ER) | payer MEDICAID, SELFPAY ==
[2025-07-20 14:11] VITALS: BP 109/55; PULSE 77; RESP 16; TEMP 36.6; O2SAT 98; BMI 30.4
--- NOTE | 2025-07-20 14:15 | XRR_ITS ---
PROCEDURE INFORMATION: Exam: XR Left Elbow Exam date and time: 07/20/2025 2:39 PM Age: 24 years old Clinical indication: Pain; Lower or forearm; Left; Additional info: Lt elbow pain/swelling after 10ft fall through ceiling TECHNIQUE: Imaging protocol: Radiologic exam of the left elbow. Views: 3 or more views. COMPARISON: CR (UP EXM, ) 07/20/2025 2:39 PM FINDINGS: Bones/joints: Normal. Soft tissues: Normal. XR/XR elbow LT min 3V* [id number] IMPRESSION: No acute findings.
--- NOTE | 2025-07-20 14:15 | XRR_ITS ---
PROCEDURE INFORMATION: Exam: XR Left Forearm Exam date and time: 07/20/2025 2:39 PM Age: 24 years old Clinical indication: Pain; Lower or forearm; Left; Additional info: Lt elbow pain/swelling after 10ft fall through ceiling TECHNIQUE: Imaging protocol: Radiologic exam of the left forearm. Views: 2 views. COMPARISON: CR (UP EX, ) 07/20/2025 2:39 PM FINDINGS: Bones/joints: Normal. Soft tissues: Normal. XR/XR forearm LT 2V [id number] IMPRESSION: No acute findings.
--- NOTE | 2025-07-20 15:12 | ED_ITS ---
HPI - Fall General: Chief Complaint: Fall Stated Complaint: fall (10ft+) Time Seen by Provider: 07/20/25 14:36 History of Present Illness: 24-year-old female who presents to the e mergency room with complaints of fall. She fell through the ceiling while cleaning her attic. She complaining of pain in her left elbow she has no other injuries did not strike her head no loss of consciousness no back pain no neck pain. Associated symptoms-after fall: Denies abdominal pain, chest pain or neck pain Related Data Home Medications ?Medication ?Instructions ?Recorded ?Confirmed No Known Home Medications 03/12/2506/27 Allergies Allergy/AdvReac Type Severity Reaction Status Date / Time No Known Allergies Allergy Verified 07/22/25 10:33 Review of Systems Const: Denies: fever(s) or chills Card: Denies: chest pain Resp: Denies: dyspnea GI: Denies: abdominal pain : Denies: dysuria, urinary frequency or urinary urgency Musc: Denies: neck pain or back pain Skin/Breast: Denies: rash PFSH ED PFSH: Medical History H/O cardiac murmur Surgical History History of appendectomy History of tonsillectomy Family History Other CAD (coronary artery disease) Diabetes Denies family history of Anesthesia complication Bleeding disorder Cancer Social History Smoking and tobacco/nicotine status: current every day tobacco/nicotine user Alcohol intake: current Alcohol intake frequency: holidays/special occasions only Substance/Drug Use: never Household members: spouse Marital status: Current occupational status: employed Physical Exam Const: COMMON NORMALS: no acute distress GENERAL APPEARANCE: cooperative and comfortable ORIENTATION/CONSCIOUSNESS: Yes awake, Yes oriented to person, Yes oriented to place and Yes oriented to time HENMT: COMMON NORMALS: normocephalic, atraumatic and hearing grossly normal bilaterally HEAD & SCALP: normocephalic and atraumatic Resp: COMMON NORMALS: normal respiratory effort, No retractions, No use of accessory muscles and clear to auscultation bilaterally AUSCULTATION: clear to auscultation bilaterally Cardio: COMMON NORMALS: regular rate, regular rhythm and No murmurs present (Cardio) RATE: regular rate RHYTHM: regular rhythm GI: COMMON NORMALS: Soft to palpation and No hepatosplenomegaly present AUSCULTATION: Yes normoactive bowel sounds PALPATION: Yes Soft to palpation, No Tenderness to palpation present (GI), No Guarding due to palpation present (GI) and Yes No hepatosplenomegaly present Extremity: COMMON NORMALS: normal to inspection, capillary refill normal, no clubbing, cyanosis or edema, no calf tenderness and no pedal edema OTHER: Bruising on the medial aspect of the left elbow Neuro: SENSORIUM/ORIENTATION: Yes oriented to person, Yes oriented to place and Yes oriented to time Skin: COMMON NORMALS: no rashes or lesions noted GENERAL SKIN EXAM: no rashes or lesions noted Course Vital Signs: Vital signs: Vital Signs Temperature 97.9 F 07/20/25 14:11 Pulse Rate 77 07/20/25 14:11 Respiratory Rate 16 07/20/25 14:11 Blood Pressure 109/55 07/20/25 14:11 Pulse Oximetry 98 07/20/25 14:11 Oxygen Delivery Me thod Room Air 07/20/25 14:11 MDM - Fall Medical Decision Making Imaging unremarkable exam unremarkable patient denies any head or neck pain or back pain. Complaining of elbow and forearm pain but has no significant findings there anti-inflammatories ice as needed follow-up as needed Medical Records I reviewed the patient's medical records. Lab Data I reviewed the patient's lab results. Radiology Impressions Elbow X-Ray 07/20/25 14:15 IMPRESSION: No acute findings. Forearm X-Ray 07/20/25 14:15 IMPRESSION: No acute findings. All radiology interpretation(s) finalized by discharge Discharge Plan Discharge Patient Disposition: Home Clinical Impression: Fall, Contusion of elbow, left Condition: Stable Prescriptions: No Action No Known Home Medications Discharge Orders: Discharge ED (Routine); Ordered 07/20/25 Ordered By: Jarek Florence Referrals: Jeanne Bright FNP-C [Primary Care Provider, [facility]] Discharge Diet: Usual diet Discharge Activity: Resume usual activity Patient Instructions: Opioid Safety, Pain Management, Patient Portal & [place] Instructions Activity Restrictions/Additional Instructions: Thank you for choosing [facility] for your healthcare needs today. It is very important that you follow up as instructed or that you return to the Emergency Department should you have concerns or if your condition changes or worsens in any way. Emergency department visits are focused on emergent conditions, in some cases you may require further evaluation on an outpatient basis. You were seen after a fall. You have a contusion to the inner aspect of your left elbow you may develop some numbness and tingling along the ulnar nerve. There is no sign of ulnar nerve injury at this time and the x-rays did not show any acute fractures. Tylenol ibuprofen ice as needed. (Please note that included in your discharge packet is information concerning opioid safety and pain management. This information is given to all patients were discharged from the ER regardless of their discharge diagnosis or the medicines they usually take or are prescribed.) Print Language: Nepalese Coding Level of Care Code ED Derrick Boat Captain for Aubrie Maxwell
== END 2025-07-20 15:47 | disposition home or self-care (01) ==
PROVIDERS: Emergency Provider Family Medicine; PCP Nurse Practitioner Family
DX: S50.02XA Contusion of left elbow, initial encounter (principal); Z72.0 Tobacco use; W13.8XXA Fall from, out of or through other building or structure, initial encounter
CPT/HCPCS: 73080; 73090; 99283

== ENCOUNTER 2025-07-29 14:19 | Outpatient (CLI) | payer MEDICAID, SELFPAY ==
--- NOTE | 2025-07-29 14:30 | US_ITS ---
WS: [id number] US pelvic complete* [id number] HISTORY: N92.6 - Irregular menstruation, unspecified COMPARISON: 04/15/2022 Uterus: 13.1 cm x 4.6 cm x 5.0 cm. Uterus is slightly enlarged and anteverted. No fibroid or mass. Endometrium: 1.2 cm. Increased echogenicity throughout the endometrium. No mass. Right ovary: 2.4 cm x 2.2 cm x 1.6 cm. Normal size and vascularity, no cystic or solid masses. Left ovary: 3.3 cm x 3.4 cm x 3.2 cm. Normal size and vascularity, no cystic or solid masses. LEFT ovarian follicle 2.1 x 2.0 x 1.9 cm. No free fluid in the cul-de-sac. US/US pelvic complete* [id number] IMPRESSION: 1. Mild uterine enlargement with no fibroid. 2. Mildly prominent endometrium with increased echogenicity. No mass identifie d. Consider mild endometrial hyperplasia. 3. Limited evaluation of the ovaries but no abnormality identified.
== END 2025-07-29 14:20 | disposition home or self-care (01) ==
LOC: RAD 14:20
PROVIDERS: PCP Nurse Practitioner Family; Visit Provider Nurse Practitioner Family
DX: N92.6 Irregular menstruation, unspecified (principal); N85.2 Hypertrophy of uterus; R93.89 Abnormal findings on diagnostic imaging of other specified body structures
CPT/HCPCS: 76856

== ENCOUNTER → 2025-09-05 16:39 | Outpatient (BNVA) | payer MEDICAID, SELFPAY | PROVIDERS: PCP Nurse Practitioner Family; Visit Provider Obstetrics & Gynecology | DX: Z01.419 Encounter for gynecological examination (general) (routine) without abnormal findings (principal) | CPT/HCPCS: 87624 ==

== ENCOUNTER → 2025-09-10 12:29 | Outpatient (BNVA) | payer MEDICAID, SELFPAY | PROVIDERS: PCP Nurse Practitioner Family; Visit Provider Nurse Practitioner Family | DX: R05.9 Cough, unspecified (principal) | CPT/HCPCS: 87400; 87426 ==